=== PATIENT | female | born 1970 | race Caucasian/White ===

== ENCOUNTER 2016-08-03 10:50 | Emergency (ER) | payer SELFPAY ==
[~2016-08-03] VITALS: Ht 162.6 cm; Wt 65.0 kg
[2016-08-03 10:58] VITALS: BP 110/74; PULSE 62; RESP 16; TEMP 98.3; O2SAT 99
[2016-08-03] MEDS ORDERED: IBUP800T23 PO (11:26)
[2016-08-03] MEDS ORDERED: CLIN1CAP5 PO (11:26)
--- NOTE | 2016-08-03 11:29 | PD ---
HPI Chief Complaint: Oral / Dental Pain or Problem Time Seen by Provider: 11:26 Travel History International Travel<30 days: No Contact w/Intl Traveler<30days: No Traveled to known affect area: No History of Present Illness HPI 45-year-old female presents to the emergency department for evaluation of left upper dental pain and facial swelling. Patient states that yesterday she began to have left upper dental pressure and pain. States when she woke up this morning the pain had persisted and she had left-sided facial swelling as well. States that she has a chipped tooth in her left upper teeth and thinks that she bit down on something the other day that caused this pain. Denies any fever, chills, nausea, vomiting, discharge or drainage, difficulty swallowing. Denies , last menstrual period 1 week ago. No other complaints. PFSH Past Medical History Medical History: Denies Significant Hx Diminished Hearing: No Tetanus Vaccination: Unknown ?: Not LMP: 07/27/2016 Past Surgical History Gynecologic Surgery: Yes Social History Alcohol Use: No Tobacco Use: No Substance Use: No Allergies-Medications (Allergen,Severity, Reaction): Coded Allergies: Penicillin (Verified Allergy, Intermediate, HIVES, 08/03/16) Reported Meds & Prescriptions Reported Meds & Active Scripts Active No Active Prescriptions or Reported Medications Review of Systems Except as stated in HPI: all other systems reviewed are Neg Physical Exam Narrative GENERAL: Well-nourished and well-developed pleasant patient in no acute distress who is nontoxic appearing. SKIN: Warm and dry. HEAD: Normocephalic and atraumatic. Mild left maxillary swelling. EYES: No injection, drainage, or hyphema noted. PERRLA. EOMI. ENT: No nasal drainage noted. Oropharynx is clear and the TMs are normal with good landmarks. DENTAL: Multiple dental caries. Erythema and swelling to upper left gingiva around tooth #10, 11 and 12. No fluctuance, discharge or drainage noted. NECK: Supple and the trachea is midline. CARDIOVASCULAR: Regular rate and rhythm. RESPIRATORY: Breath sounds are equal bilaterally with no accessory muscle use, wheezing, rhonchi, or crackles. GASTROINTESTINAL: Abdomen is soft, non-tender, and nondistended. MUSCULOSKELETAL: No obvious deformities, swelling, cyanosis, or ecchymosis is present throughout the upper and lower extremities. Patient has full range of motion without any signs of neurovascular compromise. NEUROLOGICAL: Awake, alert, and oriented. Normal speech and gait. Cranial nerves are grossly intact. Data Data Last Documented VS Vital Signs Date Time Temp Pulse Resp B/P Pulse Ox O2 Delivery O2 Flow Rate FiO2 08/03/16 10:58 98.3 62 16 110/74 99 MDM Medical Decision Making Medical Screen Exam Complete: Yes Emergency Medical Condition: Yes Differential Diagnosis Dental infection versus dental caries versus gingivitis Narrative Course 45-year-old female presents to the emergency department for evaluation of left upper dental pain and facial swelling. Patient is afebrile, vital signs are stable. This is a dental infection. She'll be given clindamycin and ibuprofen. Instructed to follow-up with her dentist. Patient verbalizes understanding and agreement with treatment plan. Diagnosis Primary Impression: Dental infection Referrals: Dentist Patient Instructions: General Instructions Additional Instructions: Take medications as prescribed with food and a full glass of water. Follow-up with your Dentist. Return to the ED for any acute worsening of symptoms. Med/Other Pt SpecificInfo: Prescription(s) given Scripts Ibuprofen 800 Mg [id number] Mg PO Q8H PRN (Pain/Inflammation) 7 Days Ref 0 Prov:Mónica Hale MD 08/03/16 Clindamycin 150 Mg [id number] Mg PO Q6H 10 Days Ref 0 Prov:Mónica Hale MD 08/03/16 Disposition: 01 DISCHARGE HOME Condition: Stable Laura Villareal Aug 03, 2016 11:29
== END 2016-08-03 12:08 | disposition home or self-care (01) ==
LOC: PHEFT 10:50
DX: K04.7 Periapical abscess without sinus (principal)
CPT/HCPCS: 99283